=== PATIENT | female | born 1990 | race African-American/Black ===

== ENCOUNTER 2017-03-21 17:09 | Emergency (ER) | payer OTHER ==
[~2017-03-21] VITALS: Wt 71.0 kg
[2017-03-21 18:46] LABS: URINE BLOOD (Dip) POC Trace-intact (NEGATIVE)
[2017-03-21] MEDS ORDERED: SOD CHLORIDE 0.9% 1,000 ML IV STA (19:05)
[2017-03-21 19:06] LABS: BASOPHILS % 0.2 % (0.0-2.0); HEMATOCRIT 37.4 % (37.0-47.0); HEMOGLOBIN 13.3 g/dl (12.0-16.0); LYMPHOCYTES # 1.1 10^3/ul (0.8-2.9); LYMPHOCYTES % 9.9 % (15.0-51.0); MEAN CORPUSCULAR HEMOGLOBIN 33.8 pg (29.0-33.0); MEAN CORPUSCULAR HGB CONC 35.6 g/dl (32.0-37.0); MEAN CORPUSCULAR VOLUME 94.9 fl (82.0-101.0); MEAN PLATELET VOLUME 10.1 fl (7.4-10.4); MONOCYTE # 0.7 10^3/ul (0.3-0.9); MONOCYTES % 6.6 % (0.0-11.0); NEUTROPHILS % 82.9 % (39.0-77.0); PLATELET COUNT 254 10^3/UL (140-415); RED BLOOD COUNT 3.94 10^6/ul (4.20-5.40); RED CELL DISTRIBUTION WIDTH 11.7 % (11.5-14.5); WHITE BLOOD COUNT 11.1 10^3/ul (4.8-10.8)
[2017-03-21 19:10] VITALS: BP 116/77; PULSE 73; RESP 17
--- NOTE | 2017-03-21 19:16 | RADRPT ---
PROCEDURE: XR Chest. CLINICAL INDICATION: Chest pain. TECHNIQUE: Single frontal chest x-ray. COMPARISON: None available. FINDINGS: The cardiomediastinal silhouette is unremarkable. No pneumothorax, pleural effusion or consolidation is seen. No acute osseous abnormality is noted. IMPRESSION: 1. No acute cardiopulmonary abnormality. RPTAT: HH .Laureen Da Silva MD, Date Time Electronically viewed and signed by .Laureen Da Silva MD, on 03/21/2017 19:16 .N/
[2017-03-21 19:24] LABS: CALCIUM 9.5 mg/dl (8.4-10.2); CREATININE 0.65 mg/dl (0.44-1.00); POTASSIUM 3.7 mmol/L (3.5-5.1)
[2017-03-21 19:36] LABS: TROPONIN-I 0.013 ng/ml (0.00-0.12)
--- NOTE | 2017-03-21 19:42 | ERD ---
ER Documentation Chief Complaint Date/Time DATE: 03/21/17 TIME: 19:38 Chief Complaint anxiety after having blood taken from her today. gen weakness no neuro def HPI This is a 26-year-old female with no previous medical conditions who presents to the emergency room for evaluation after she went for some routine lab work prior to having a breast augment, and fainted. The patient was transported to [facility] where she was seen in the emergency room and refused to give any blood work. She was discharged and the patient went home and stated that she felt weak and came to the emergency room for evaluation. She denies any pain or palpitations or nausea but states she is feeling weak with no aggravating or relieving factors ROS All systems reviewed and are negative except as per history of present illness. Medications Home Meds No Active Prescriptions or Reported Meds Allergies Allergies: Coded Allergies: No Known Allergy (Unverified , 03/21/17) PMhx/Soc Medical and Surgical Hx: pt denies Medical Hx, pt denies Surgical Hx Hx Alcohol Use: No Hx Substance Use: No Hx Tobacco Use: No Smoking Status: Never smoker Physical Exam Vitals Vital Signs Date Time Temp Pulse Resp B/P Pulse Ox O2 Delivery O2 Flow Rate FiO2 03/21/17 19:10 73 17 116/77 100 Room Air 03/21/17 17:43 99.3 83 20 122/84 98 Physical Exam INITIAL VITAL SIGNS: Reviewed by me GENERAL: The patient is well developed and appropriate for usual state of health in no apparent distress HEENT: Dry mucous membranes, pupils equal, round, and reactive to light. EOMI. There is no scleral icterus. NECK: C-spine is soft and supple, there is no meningismus. There is no cervical lymphadenopathy. LUNGS: Clear to auscultation bilaterally. There are no rales, wheezes or rhonchi. HEART: Regular rate and rhythm, no murmurs, clicks, rubs or gallops. ABDOMEN: Soft, non-tender, non-distended. There are bowel sounds in all four quadrants. No rebound or guarding. EXTREMITIES: There is no peripheral cyanosis or edema. No focal swelling or erythema. NEUROLOGICAL: The patient moves all four extremities with 5/5 strength. Cranial nerves II - XII are intact. Normal gait. Alert and oriented SKIN: There is no apparent rash or petechiae. HEME/LYMPHATIC: There is no evidence of excessive bruising or lymphedema. PSYCHIATRIC: The patient does appear anxious Result Diagram: 03/21/17189903/21/171899 Results 24 hrs Laboratory Tests Test 03/21/17 18:53 03/21/17 19:00 Bedside Urine pH (LAB) 7.0 Bedside Urine Protein (LAB) Negative Bedside Urine Glucose (UA) Negative Bedside Urine Ketones (LAB) Negative Bedside Urine Blood Trace-intact Bedside Urine Nitrite (LAB) Negative Bedside Urine Leukocyte Esterase (L Negative White Blood Count 11.110^3/ul Red Blood Count 3.9410^6/ul Hemoglobin 13.3g/dl Hematocrit 37.4% Mean Corpuscular Volume 94.9fl Mean Corpuscular Hemoglobin 33.8pg Mean Corpuscular Hemoglobin Concent 35.6g/dl Red Cell Distribution Width 11.7% Platelet Count 47178^3/UL Mean Platelet Volume 10.1fl Neutrophils % 82.9% Lymphocytes % 9.9% Monocytes % 6.6% Eosinophils % 0.0% Basophils % 0.2% Nucleated Red Blood Cells % 0.0/100WBC Neutrophils # (Manual) 9.210^3/ul Lymphocytes # 1.110^3/ul Monocytes # 0.710^3/ul Eosinophils # 0.010^3/ul Basophils # 0.010^3/ul Nucleated Red Blood Cells # 0.010^3/ul Sodium Level 139mmol/L Potassium Level 3.7mmol/L Chloride Level 105mmol/L Carbon Dioxide Level 25mmol/L Anion Gap 13 Blood Urea Nitrogen 10mg/dl Creatinine 0.65mg/dl Glucose Level 100mg/dl Calcium Level 9.5mg/dl Troponin I 0.013ng/ml Current Medications Medications (Trade) Dose Ordered Sig/Elham Route PRN Reason Start Time Stop Time Status Last Admin Dose Admin Sodium Chloride (NS) 1,000 ml @ 1,000 mls/hr Q1H STAT IV 03/21/17 19:05 03/21/17 20:04 Procedures/MDM EKG: Rate/Rhythm: [Normal Sinus Rhythm] QRS, ST, T-waves: [No changes consistent w/ acute ischemia] Impression: [No evidence of ischemia or arrhythmia] Chest X-ray 1V Interpreted by me: Soft Tissue: No acute abnormalities Bones: No acute abnormalities Mediastinum/Cardiac Silhouette/Lungs: [No acute abnormalities] This 26-year-old female presents to the ER for evaluation of a syncopal episode earlier today when having routine preop lab work done. The patient appear to be mildly anxious on my examination. The patient did appear to be mildly anxious. The patient did have lab work drawn in the emergency room including EKG which is nonischemic. Lab work is all within normal limits and she was given 1 L of fluids. The patient likely had a vasovagal episode after having blood work drawn. She likely also suffering from anxiety. The patient will be discharged Departure Diagnosis: Primary Impression: Anxiety Additional Impression: Syncope Condition: Stable KATIUSKA FLORES DO Mar 21, 2017 19:42
== END 2017-03-21 19:53 | disposition home or self-care (01) ==
LOC: E/R 17:09
DX: F41.9 Anxiety disorder, unspecified (principal); R55 Syncope and collapse
CPT/HCPCS: 36415; 71010; 80048; 81003; 84484; 85025; 93005; J7030; Z7502